=== PATIENT | male | born 1965 | race Caucasian/White ===

== ENCOUNTER 2018-06-29 09:45 | Outpatient (CLI) ==
--- NOTE | 2018-06-29 13:11 | DI ---
Exam: Two views left tibia-fibula. Comparison: None available. Reason for exam: Cellulitis. FINDINGS: No acute fracture or malalignment. The cortices of the left tibia and fibula appear intac t. No evidence of osseous erosion. No unexplained calcific soft tissue density or radiopaque retain ed foreign body. Impression: No acute fracture or malalignment in the left tibia or fibula.
== END 2018-06-29 09:46 | disposition home or self-care (01) ==
LOC: LAB 09:45
PROVIDERS: ATTEND Emergency Medicine
DX: R68.89 Other general symptoms and signs (principal); L03.116 Cellulitis of left lower limb; T63.301A Toxic effect of unspecified spider venom, accidental (unintentional), initial encounter
CPT/HCPCS: 36415; 85025; 85651; 87804

== ENCOUNTER 2018-08-22 10:25 | Emergency (ER) | payer OTHER ==
[2018-08-22 10:33] VITALS: BP 116/73; TEMP 98; BMI 22.1
--- NOTE | 2018-08-22 11:43 | ED.PDOC ---
General ED Provider: Dr. HUEY TONY Chief Complaint: Earache Stated Complaint: patient states that the right hurts and is tender to palpation on the right anterior neck region. Has poor tentition on the right upper tooth. Time Seen by Physician: 11:43 Mode of Arrival: Walk-In Information Source: Patient Exam Limitations: No limitations Nursing and Triage Documentation Reviewed and Agree: Yes Does patient meet sepsis criteria?: No System Inflammatory Response Syndrome: Not Applicable Sepsis Protocol: For patient's 13 years and over: Temp is 96.8 and below OR 101 and greater Pulse >90 BPM Resp >20/minute Acutely Altered Mental Status Are patient's symptoms suggestive of a new infection, such as: -Pneumonia -Skin, Soft Tissue -Endocarditis -UTI -Bone, Joint Infection -Implantable Device -Acute Abdominal Infection -Wound Infection -Meningitis -Blood Stream Catheter Infection -Unknown EENT Complaint Exam - Dental/Oral Complaint/Exam Mechanism of Injury: No known trauma Onset/Duration: 3 days Symptoms Are: Still present Timing: Constant Initial Severity: Moderate Current Severity: Moderate Location: Right upper Jaw Character: Reports: Aching Aggravating: Reports: Chewing Alleviating: Reports: None Associated Signs and Symptoms: Reports: Swelling Cardiac Risk Factors: Reports: None Dental/Oral Surgical History: Reports: Third Molar Extractions Tooth Findings: Present: Gross caries (Right upper molars ), Abcess Review of Systems - Review Of Systems Constitutional: Reports: No symptoms Eyes: Reports: No symptoms Ears, Nose, Mouth, Throat: Reports: Ear pain, Mouth pain Respiratory: Reports: No symptoms Cardiac: Reports: No symptoms GI: Reports: No symptoms : Reports: No symptoms Musculoskeletal: Reports: Neck pain (right ) Skin: Reports: No symptoms Neurological: Reports: No symptoms Endocrine: Reports: No symptoms Hematologic/Lymphatic: Reports: No symptoms All Other Systems: Reviewed and Negative Past Medical History - Past Medical History Previously Healthy: Yes Endocrine: Reports: None Cardiovascular: Reports: None Respiratory: Reports: None Hematological: Reports: None Gastrointestinal: Reports: None Genitourinary: Reports: None Neuro/Psych: Reports: None Musculoskeletal: Reports: None Cancer: Reports: None - Surgical History General Surgical History: Reports: None - Family History Family History: Reports: Unknown - Social History Smoking Status: Current every day smoker Hx Substance Use: No Alcohol Screening: Heavy - Immunizations Tetanus Shot up to Date: No Physical Exam - Physical Exam Appearance: Ill-appearing Ill-appearing: Mild Pain Distress: Moderate Eyes: TYRON, EOMI, Conjunctiva clear ENT: Ears normal, Nose normal, Oropharynx normal Respiratory: Airway patent Cardiovascular: RRR, Pulses normal, No rub, No murmur GI/: Soft, Nontender, No masses, Bowel sounds normal, No Organomegaly Musculoskeletal: Normal strength, ROM intact, No edema, No calf tenderness Skin: Warm, Dry, Normal color Neurological: Sensation intact, Motor intact, Reflexes intact, Cranial nerves intact, Alert, Oriented Psychiatric: Anxious Critical Care Note - Critical Care Note Total Time (mins): 0 Course - Course Vital Signs: Temp Pulse Resp BP Pulse Ox 08/22/18 10:28 98 F 93 H 20 116/73 97 Departure - Departure Time of Disposition: 11:43 Disposition: HOME SELF-CARE Discharge Problem: Dental abscess, Otalgia of right ear Instructions: Dental Abscess (ED), Earache (ED) Condition: Fair Pt referred to PMD for follow-up: Yes IPMP verified?: No Additional Instructions: Take Medications as prescribed. Follow uip wit PCP in 3 days Prescriptions: Amoxicillin [Amoxil] 500 mg PO TID #30 capsule Tramadol HCl [Ultram] 50 mg PO Q6H PRN #10 tablet PRN Reason: Severe Pain Allergies/Adverse Reactions: Allergies No Known Allergies Allergy (Verified 08/22/18 10:33) Home Medications: Ambulatory Orders Amoxicillin [Amoxil] 500 mg PO TID #30 capsule 08/22/18 Tramadol HCl [Ultram] 50 mg PO Q6H PRN #10 tablet 08/22/18 Disposition Discussed With: Patient
== END 2018-08-22 12:07 | disposition home or self-care (01) ==
LOC: ED 10:25
DX: K04.7 Periapical abscess without sinus (principal); H92.01 Otalgia, right ear; K02.7 Dental root caries; F17.210 Nicotine dependence, cigarettes, uncomplicated
CPT/HCPCS: 99282